=== PATIENT | female | born 1960 | race Two or more races ===

== ENCOUNTER 2016-11-02 06:06 | Day surgery (SDC) | payer OTHER ==
--- NOTE | 2016-11-01 11:04 | HP ---
Sima Franco : 1960 HISTORY OF PRESENT ILLNESS: This is a 56-year-old female whose last period was 2011. She does have a history of radiation therapy for colorectal carcinoma. She was first seen in March for vaginal dryness. Subsequent visits she had endometrial cells present on a pap smear and endometrial biopsy was discussed. Also an ultrasound was ordered for pelvic pain. The first ultrasound done on 06/12/2016 showed the uterus to be normal size 7.1 x 3 x 3.7 in greatest dimensions. The endometrial thickness was normal and there was a tubular structure noted in the right adnexal region which may relate to the patient's fallopian tube. There was no fluid in the cul-de-sac. Findings of possible hydrosalpinx was the impression at that time. A repeat ultrasound was performed on 08/16/2016 with similar findings. She was also again complaining of pelvic pain and options were discussed including laparoscopy versus continued observation. She elected to have a laparoscopy at that time and is admitted now for a laparoscopy, possible aspiration or biopsy of the right cystic structure. Her CA-125 was normal. She is admitted with having abdominal pain and cramps since May 2016 and the presence of a tubular structure most likely a hydrosalpinx on the right side. Laparoscopy versus ultrasound or guided aspiration was discussed and patient elected to have a laparoscopy possible biopsy or aspiration of the hydrosalpinx or ovarian cyst. Risks, reasons, complications, living will discussed all in laypersons terms. All questions answered. Alternatives were also discussed. OB HISTORY: She is a 4, para 4-0-0-4, four vaginal deliveries. [employer] CR[employer] MANAGER HISTORY: Menarche 12 x28 x5. She is not on any hormone therapy and no history of sexually transmitted diseases in the past. PAST MEDICAL HISTORY: Includes depression, colorectal cancer, hypothyroidism present and she did have a history of hyperthyroidism. She is also hypertensive. MEDICATIONS: Include: 1. Gabapentin. 2. Levothyroxine. 3. Lisinopril. 4. Pantoprazole. 5. Bupropion. ALLERGIES: SHE HAS ALLERGIES, BUT SHE IS UNSURE TO WHAT MEDICATIONS. PAST SURGICAL HISTORY: Includes a tubal ligation, colorectal resection with ileostomy and revision and a thyroidectomy. FAMILY HISTORY: Positive for stomach, pancreatic, breast, and lymphoma involving her siblings, parents, uncles, and aunts. SOCIAL HISTORY: Negative. REVIEW OF SYSTEMS: Noncontributory with occasional cramps in the lower abdomen. PHYSICAL EXAMINATION: GENERAL: Is a obese female who looks stated age in no acute distress. HEENT: Normal. NECK: Supple. Thyroid not palpable. BREAST: There was a 1 cm smooth cyst lateral to the nipple on the left breast. The right breast was normal. No nipple discharge. HEART: Regular sinus rhythm. No murmurs. LUNGS: Clear. ABDOMEN: Soft and nontender with a midline scar and also previous scars of what looks to be a laparoscopy, although she did not admit to having a laparoscopy. PELVIC: External genitalia, radiation changes to skin on both labia, clitoris, perineum. Vagina was healthy, cervix pink and nontender, uterus normal size, anteverted, and nontender. Adnexa negative. IMPRESSION: Chronic pelvic pain with right adnexal cystic mass most likely a hydrosalpinx or a small ovarian cyst. PLAN: Is a laparoscopy, possible aspiration of cyst. Note the follow up breast exam a month after her initial visit showed that the breasts were normal. The CA-125 was normal. JOB: [id number]
[~2016-11-02 06:06] MED LIST: IV START KIT ONE; LACTATED RINGERS 1,000 ML IV SCH; LACTATED RINGERS 1,000 ML ONE; LIDOCAINE 1% 2 ML VIAL ID PRN
[2016-11-02] MEDS ORDERED: LIDOCAINE 2% (MULTI DOSE) 10 ML VIAL ONE (06:34)
[2016-11-02] MEDS ORDERED: MIDAZOLAM HCL 1 MG/ML 2ML VIAL ONE (06:34)
[2016-11-02] MEDS ORDERED: ROCURONIUM BROMIDE 10 MG/ML DOSE IV ONE ×3 (06:34→06:36)
[2016-11-02] MEDS ORDERED: FENTANYL 100 MCG/2 ML VIAL ONE (06:34)
[2016-11-02] MEDS ORDERED: PROPOFOL 20 ML IV ONE (06:34)
[2016-11-02] MEDS ORDERED: LIDOCAINE 1% (PRES FREE) 30 ML VIAL ONE (06:53)
[2016-11-02] MEDS ORDERED: MEPERIDINE 25 MG/ML SYRINGE ONE ×3 (07:33→09:10)
[2016-11-02] MEDS ORDERED: NALOXONE HCL 0.4 MG/ML VIAL IV PRN (08:01)
[2016-11-02] MEDS ORDERED: ONDANSETRON 4 MG/2ML 2 ML VIAL IV PRN (08:01)
[2016-11-02] MEDS ORDERED: PROMETHAZINE HCL 25 MG/ML VIAL IM PRN (08:01)
[2016-11-02] MEDS ORDERED: HYDRALAZINE HCL 20 MG/1 ML VIAL IV PRN (08:01)
[2016-11-02] MEDS ORDERED: ATROPINE SULFATE 0.4 MG/1 ML VIAL IV PRN (08:01)
[2016-11-02] MEDS ORDERED: MEPERIDINE 25 MG/ML SYRINGE IV PRN (08:01)
[2016-11-02] MEDS ORDERED: LACTATED RINGERS 1,000 ML IV SCH ×2 (08:15→10:15)
[2016-11-02] MEDS ORDERED: NEOSTIGMINE METHYLSULFATE 1 MG/ML DOSE ONE (08:23)
[2016-11-02] MEDS ORDERED: GLYCOPYRROLATE 0.2 MG/ML 1ML VIAL ONE (08:23)
--- NOTE | 2016-11-02 08:45 | PCMBPN ---
Brief Post Op Note: Date of Procedure: 11/02/16 Start Time: Preoperative Diagnosis: 1. chronic pelvic pain, right adnexal tubular structure Postoperative Diagnosis: 1. chronic pelvic pain, multiple bowel and omental adhesions, pelvic adhesions, evidence of endometriosis Procedure: diagnostic laparoscopy Surgeon: Terrell Greene Assist: Anesthesia: general, ms chirinos Findings: external genitalia healthy, cervix pink and patulous, uterus normal size anteverted, sounded to 7 cm, adnexa negative, vagina healthy. laparoscopy: uterus normal size anteverted, both ovaries normal, with brown spots suggestive of endometriosis, pelvic adhesions, both fallopian tubes ligated, right tube distal portion adherent to posterior cul de sac, otherwise appeared normal, multiple bowel and omental adhesions, left fallopian tube distal portion normal Condition: stable Complications: none IV Fluids: mLs of LR Urine Output: 150 mLs Estimated Blood Loss: less than 10 mLs Tourniquet Time: N/A Specimens: N/A Implants: Drains: N/A closure: 4-0 vicryl interrupted patient tolerated procedure well and was returned to recovery room in stable condition.
[2016-11-02] MEDS ORDERED: KETOROLAC TROMETHAMINE 30 MG/ML 1 ML VIAL IV ONE (08:53)
[2016-11-02] MEDS ORDERED: IBUPROFEN 800 MG TABLET PO PRN (09:16)
[2016-11-02] MEDS ORDERED: OXYCODONE/ACETAMINOPHEN 5/325 MG TABLET PO PRN (09:46)
[2016-11-02] MEDS ORDERED: LIDOCAINE 1% 2 ML VIAL ID PRN (10:01)
[2016-11-02] MEDS ORDERED: OXYCODONE/ACETAMINOPHEN 5/325 MG TABLET ONE (10:50)
--- NOTE | 2016-11-02 10:51 | OP ---
Sima Franco : 1960 NAME OF OPERATION: Diagnostic laparoscopy. PREOPERATVE DIAGNOSIS: Chronic pelvic pain with right tubular structure. POSTOPERATIVE DIAGNOSES: Chronic pelvic pain, multiple bowel and omental adhesions, pelvic adhesions, and evidence of endometriosis. TITLE CURATIVE SPECIALIST: Dr. Terrell Wilson ANESTHESIA: General Jeremie. DESCRIPTION OF OPERATION: Begins with patient in the lithotomy position. The vagina was prepared with Betadine and the abdomen was prepared with chloraprep and draped in the usual manner. The bladder was also emptied of 150 mL of clear yellow urine. After a timeout was performed, examination under anesthesia revealed external genitalia healthy, vagina is healthy, cervix was pink and patulous, uterus normal size and anteverted, adnexa negative. A duckbill speculum was inserted into the vagina gently. The anterior lip of the cervix grasped with a single pronged tenaculum. The uterus was then sounded to 7 cm and then a uterine manipulator was inserted. The duckbill speculum and single prong tenaculum were then removed. Next, two towel clamps were used to grasp the skin lateral to the umbilicus and a subumbilical incision was made with the first knife. A Veress needle was inserted, tested with normal saline, and found to be patent. Carbon dioxide gas was instilled with an opening pressure of 7 mmHg until 2.8 liters of carbon dioxide gas were instilled creating an adequate pneumoperitoneum by percussion. The Veress needle was then removed. The incision extended laterally and then a long laparoscopic trocar was inserted into the abdominal cavity under direct visualization with the laparoscope. The trocar was removed and then the laparoscope was placed through the trocar sheath. Findings included multiple adhesions present between the omentum and the bowel and also bowel to peritoneal cavity. Photographs of this were taken. In the pelvic region the uterus was normal size and anteverted. Both fallopian tubes had evidence of previous tubal ligation. There were brown spots noted on both ovaries suggestive of endometriosis. The ovaries appeared normal and the distal portions of the right fallopian tubes appeared normal with the right one being more adherent to the lateral peritoneal wall.. Photographs of this were taken. No biopsy was needed as both fallopian tubes distal portions appeared normal. At this point, the laparoscope portion of the operation was terminated. There was complete hemostasis. With the laparoscope the lower margin of the liver was also inspected and appeared normal.. Now with complete hemostasis the laparoscope was removed. Air was expelled through the trocar sheath and the trocar was removed. The skin defects were closed with 4-0 Vicryl interrupted sutures. One additional abrasion where the single prong tenaculum had been placed was also individually sutured with the same material. The incision was then injected with a total of 10 mL of 1% lidocaine for analgesia. Next, the vaginal instruments were removed. There was no vaginal bleeding noted and now at this point with sponge and instrument count reported as correct and complete hemostasis the operation was terminated. Estimated blood loss of the procedures was less than 10 mL. The patient tolerated the procedure well and returned to recovery room in stable condition. FINAL DIAGNOSIS: As above. JOB: [id number]
--- NOTE | 2016-11-02 10:54 | DS ---
[facility] COURSE: Sima Franco is a 56-year-old female who underwent a laparoscopy for chronic pelvic pain and a right adnexal tubular structure. She tolerated the procedure well and was sent home in good condition. Advised office visit in one week time and activities were explained to the patient prior to her having anesthesia. Laboratory values were noted and normal. Negative test. JOB: [id number]
== END 2016-11-02 11:15 | disposition home or self-care (01) ==
LOC: SDC 06:06
PROVIDERS: ATTEND Obstetrics & Gynecology
PROC: 0WJG4ZZ Inspection of Peritoneal Cavity, Percutaneous Endoscopic Approach (ICD-10-PCS; principal; 2016-11-02)
DX: R10.2 Pelvic and perineal pain (principal); G89.29 Other chronic pain; K66.0 Peritoneal adhesions (postprocedural) (postinfection); N80.1 Endometriosis of ovary; R19.09 Other intra-abdominal and pelvic swelling, mass and lump; I10 Essential (primary) hypertension; E03.9 Hypothyroidism, unspecified; Z79.899 Other long term (current) drug therapy; Z85.038 Personal history of other malignant neoplasm of large intestine; Z80.3 Family history of malignant neoplasm of breast; Z80.0 Family history of malignant neoplasm of digestive organs; Z92.3 Personal history of irradiation; Z80.7 Family history of other malignant neoplasms of lymphoid, hematopoietic and related tissues; G47.33 Obstructive sleep apnea (adult) (pediatric); M79.7 Fibromyalgia
CPT/HCPCS: 49320; J2175 ×3; J3010; A9270; J1885; J2250; J2001 ×2; J7120